=== PATIENT | male | born 1960 | race Caucasian/White ===

== ENCOUNTER 2022-12-02 09:59 | Day surgery (SDC) | payer OTHER, SELFPAY ==
[2022-10-29 10:36] VITALS: BMI 21.9
[2022-11-12 10:59] VITALS: BMI 21.9
--- NOTE | 2022-11-29 08:41 | WPDANESEPPF ---
Anes - Initial Pre Proc Eval Procedure: Operation Date: 12/02/22 12:30 Proposed Procedures p Esophagogastroduodenoscopy - Bc Borden MD s Diagnostic Colonoscopy - Bc Borden MD Date/Time: 11/29/22 08:41 Surgeon: Bc Borden MD Pre Op Diagnosis: Anemia and Positive Hemasure Patient Data Age: 62 Gender: M Height: 1.96 m Weight: 84 kg Allergies Allergy/AdvReac Type Severity Reaction Status Date / Time No Known Allergies Allergy Verified 12/02/22 11:03 Home Medications Medication Instructions Recorded Confirmed Type fluticasone propionate 50 2 spray intranasal DAILY 10/07/22 11/12/22 History mcg/actuation nasal spray,suspension (Flonase Allergy Relief) sodium,potassium,mag sulfates 17.5 See Rx Instructions PO .COMPLEX 10/29/22 12/02/22 Rx gram-3.13 gram-1.6 gram oral soln #354 mL (Suprep Bowel Prep Kit) psyllium husk 3.4 gram/5.4 gram 1 tbsp PO BID 11/12/22 11/12/22 History oral powder (Metamucil) zinc-pygeum xteun-fcebb-h palm 1 tablet PO DAILY 11/12/22 12/02/22 History tablet Patient hx anesthesia problems: none Family hx anesthesia problems: none Results Review: All pre-operative results and documents have been reviewed as part of the pre-operative evaluation. FORMERLY [facility] Past Medical History Medical History (Updated 10/24/22 @ 20:01 by Perla Mauricio PA-C) Anemia Surgical History Surgical History History of hernia surgery as a child Family History Family History Sibling Family history of elevated blood lipids Father Cerebrovascular accident Mother Family history of malignant neoplasm Family history of heart disease in male family member before age 55 Social History Social History (Updated 10/07/22 @ 10:29 by Faye Alva) Smoking status: Never smoker Alcohol intake: current Alcohol use details: occasional Substance use: current Substance use type: does not use Living arrangements: alone Gender identity (if verbalized by the patient): Male Sexual Orientation (if Verbalized by the Patient): Straight or Heterosexual Anes - Eval Final PreProcedure Day of Procedure 11/29/22 08:41 Patient weight: normal Heart: regular rate and rhythm Lungs: clear to auscultation and normal air movement Airway: Mallampati scale class II Neurological: alert and oriented Last oral intake: >/= 8 hours ASA classification: II Emergent: no Anesthetic plan: proceed Anesthesia type and monitoring: general GIVS and standard monitoring Results Review: All pre-operative results and documents have been reviewed as part of the pre-operative evaluation. Informed Consent: The patient's anesthetic plan and its attendant risks and benefits were discussed with the patient/family/POA. Questions were solicited and answers provided to the satisfaction of the patient/family/POA.
--- NOTE | 2022-12-02 11:05 | PM.HPGS ---
History of Present Illness History of Present Illness Consent: Risks, benefits, and alternatives have been discussed and questions answered. Patient agrees to proceed with procedure. Chief complaint: Anemia and Positive Hemasure Narrative: Joseph Napoles is a 62 year old male Presents for colonoscopy an EGD. Patient states that his current weight appetite and bowel movements are normal. Patient denies abdominal pain. He has had no bleeding. Family history noncontributory. Patient recently seen for routine screening exam. Found to have very mild normochromic normocytic anemia and occult blood in stool. He was subsequently referred for colonoscopy an EGD. Review of Systems Review of Systems: Review of systems noncontributory. [facility] Past Medical History Medical History (Updated 10/24/22 @ 20:01 by Perla Mauricio PA-C) Anemia Surgical History Surgical History History of hernia surgery as a child Family History Family History Sibling Family history of elevated blood lipids Father Cerebrovascular accident Mother Family history of malignant neoplasm Family history of heart disease in male family member before age 55 Social History Social History (Updated 10/07/22 @ 10:29 by Faye Alva) Smoking status: Never smoker Alcohol intake: current Alcohol use details: occasional Substance use: current Substance use type: does not use Living arrangements: alone Gender identity (if verbalized by the patient): Male Sexual Orientation (if Verbalized by the Patient): Straight or Heterosexual Meds Home Medications and Allergies Home Medications Medication Instructions Recorded Confirmed Type fluticasone propionate 50 2 spray intranasal DAILY 10/07/22 11/12/22 History mcg/actuation nasal spray,suspension (Flonase Allergy Relief) sodium,potassium,mag sulfates 17.5 See Rx Instructions PO .COMPLEX 10/29/22 12/02/22 Rx gram-3.13 gram-1.6 gram oral soln #354 mL (Suprep Bowel Prep Kit) psyllium husk 3.4 gram/5.4 gram 1 tbsp PO BID 11/12/22 11/12/22 History oral powder (Metamucil) zinc-pygeum miduh-bmtnu-c palm 1 tablet PO DAILY 11/12/22 12/02/22 History tablet Allergies Allergy/AdvReac Type Severity Reaction Status Date / Time No Known Allergies Allergy Verified 12/02/22 11:03 Exam Narrative: Physical exam reveals patient to be alert. Vital signs stable. HEENT exam is unremarkable. Patient is anicteric. Lungs are clear to auscultation and percussion. Heart is without murmur or extra sounds. Abdomen bowel sounds are present soft nontender with no organomegaly. Digital external rectal exam is normal. Assessment and Plan Assessment and plan (1) Anemia: Code(s): D64.9 - Anemia, unspecified Status: Acute Assessment and Plan: Patient very mild normochromic normocytic anemia. Etiology unclear. Colonoscopy will be performed. EGD also will be performed. Patient reports donating blood frequently and this may contribute to his mild anemia. (2) Occult blood positive stool: Code(s): R19.5 - Other fecal abnormalities Status: Acute Assessment and Plan: Occult blood in stool noted on screening exam. Patient reports straining at stool. He does not visually see blood in his stool. Further recommendations may be given after colonoscopy.
[2022-12-02 11:08] VITALS: BP 145/87; PULSE 88; RESP 20; TEMP 36.7; O2SAT 100
[2022-12-02] MEDS: LACTATED RINGERS 1,000 ML 150 ML IV CONT (11:21)
[2022-12-02 12:04] VITALS: BP 112/74; PULSE 87; RESP 18; O2SAT 100
[2022-12-02 12:14] VITALS: BP 120/82; PULSE 79; RESP 18; O2SAT 100
--- NOTE | 2022-12-02 13:02 | WPDANESPN ---
Anes - Prog Note Post-Op Date/Time: 12/02/22 13:02 Cardiovascular status: normal Respiratory status: normal Airway patency: baseline Mental status: baseline Post-Op hydration status: normal Vital Signs: Last Vital Signs Temp 36.7 C 12/02/22 11:08 Pulse 79 12/02/22 12:14 Resp 18 12/02/22 12:14 BP 120/82 12/02/22 12:14 Pulse Ox 100 12/02/22 12:14 O2 Del Method Room Air 12/02/22 12:14 Pain Score (VAS): 0 I/O: Intake & Output 12/01/22 12/02/22 12/02/22 23:59 07:59 15:59 Intake Total 500 Balance 500 Post-procedural complaints: none Patient Feedback: Patient satisfied with anesthetic care. Other Findings: Patient vital signs back to baseline. Patient denies nausea and vomiting. Patient's pain under control. Patient OK for discharge.
== END 2022-12-02 12:42 | disposition home or self-care (01) ==
LOC: ASC 10:52
PROVIDERS: PCP Physician Assistant Medical; Visit Provider Internal Medicine Gastroenterology
PROC: 0DJ08ZZ Inspection of Upper Intestinal Tract, Via Natural or Artificial Opening Endoscopic (ICD-10-PCS; CPT 43235; principal; 2022-12-02 12:30)
PROC: 0DJD8ZZ Inspection of Lower Intestinal Tract, Via Natural or Artificial Opening Endoscopic (ICD-10-PCS; CPT 45378; 2022-12-02 12:30)
DX: R19.5 Other fecal abnormalities (principal)
CPT/HCPCS: 45378; 43235